=== PATIENT | male | born 1945 | race Caucasian/White ===

== ENCOUNTER 2017-03-11 20:37 | Inpatient (IN) ==
[2017-03-12] MEDS: methylPREDNISolone SOD SUC 40 MG/1 ML VIAL IV SCH ×3 (01:01→17:45)
[2017-03-12] MEDS: CEFEPIME 1,000 MG in SODIUM CHLORIDE 0.9% 100 ML IV SCH ×2 (01:04→14:45)
--- NOTE | 2017-03-12 06:20 | Pulmonology Progress Note ---
Pulmonary - PN: Subj Interval history: This 72-year-old white male has laryngeal carcinoma with a tracheostomy. Has metastatic disease to lungs bones and lymph nodes. He was coughing up blood last night. We decided to move him from [facility] to the ICU at [facility]. The hemoptysis has decreased. Plans are for bronchoscopy this morning. Left lower lobe rounded infiltrate looks a little better today than yesterday. Probably wants some pulmonary hemorrhage. Certainly could have also been bleeding from upper airways. Patient is alert and not dyspneic. Exam (Progress Note) - Constitutional Vitals: Period Temp Pulse Resp BP Sys/Rdz Pulse Ox Last 24 Hr 98.1 F-98.6 F 75-79 16-22 105-137/58-71 93-98 Exam: Alert oriented vital signs normal. Pupils react to light. Some blood in his soft palate. Neck is supple. Tracheostomy clean. Chest shows minimal expiratory rhonchi. Heart normal rate and rhythm no murmurs. Abdomen soft no masses. Extremities no clubbing cyanosis or edema. Results - Diagnostic Findings Procedure: Chest x-ray: image reviewed by me (Tracheostomy in place. Rounded infiltrate at left base seen last night looks better.) Assessment and Plan (1) COPD (chronic obstructive pulmonary disease) Status: Acute Assessment and plan: Continuing bronchodilators steroids and antibiotics empirically Current Visit: No (2) Metastatic lung cancer (metastasis from lung to other site) Status: Acute Assessment and plan: Patient has had 37 rounds of radiation to his neck. 2 rounds of chemotherapy followed by side effects that he did not tolerate. At this point he does not want further therapy. However it is likely that the hemoptysis is coming from his lung and/or laryngeal cancer. Current Visit: No (3) Hemoptysis Status: Acute Assessment and plan: This is improving. Plan for bronchoscopy this morning. Current Visit: No
[2017-03-12] MEDS ORDERED: PROMETHAZINE 25 MG/1 ML VIAL IM ONE (06:30)
[2017-03-12 06:34] LABS: Basophils % 0.1 % (0.0-0.8); Hematocrit 24.6 VOL% (42.0-52.0); Hemoglobin 7.6 GM/DL (14.0-18.0); Immature Granulocytes % 0.9 %; Immature Granulocytes Absolute 0.12 #; Lymphocytes # 0.7 10*3/uL (1.4-4.0); Lymphocytes % 5.5 % (21.2-54.2); Mean Corpuscular HGB Conc 30.9 GM/DL (32-36); Mean Corpuscular Hemoglobin 27 PG (27-34); Mean Corpuscular Volume 86.9 FL (87-102); Mean Platelet Volume 10.2 FL (9.6-12.0); Monocytes # 0.1 10*3/uL (0.11-0.8); Monocytes % 0.7 % (1.7-12.7); Neutrophils # 12.3 10*3/uL (1.4-7.4); Neutrophils % 92.8 % (38.7-73.9); Platelet Count 312 T/CUMM (130-400); Red Blood Count 2.83 MC/CUMM (3.8-5.5); Red Cell Distribution Width 16.3 % (9.3-17.3); White Blood Count 13.3 T/CUMM (4-12)
[2017-03-12] MEDS ORDERED: LIDOCAINE 1% 20 ML VIAL MISC INJ ONE (07:00)
[2017-03-12] MEDS ORDERED: MIDAZOLAM 2 MG/2 ML VIAL IV ONE (07:00)
[2017-03-12 07:02] LABS: Calcium 7.8 MG/DL (8.5-10.1); Magnesium 2.6 MG/DL (1.8-2.4); Osmolality,Calculated 278.7 MOS/KG (273-304); Potassium 5.4 MMOL/L (3.5-5.1)
--- NOTE | 2017-03-12 07:11 | Operative Note ---
Date of procedure: 03/12/17 (Fiberoptic bronchoscopy) Pre-op diagnosis: Hemoptysis in patient with known lung cancer Post-op diagnosis: same (Bleeding from anteromedial basilar segment left lower lobe lesion) Procedure: After an appropriate timeout to be sure we were dealing with Joselito Owens, the patient was given 2 mg of Versed intravenously. The inner cannula was removed from his tracheostomy. The fiberoptic bronchoscope was introduced via the tracheostomy. There was very little blood in the tracheobronchial tree. I inspected to the subsegmental level. In the anteromedial basilar segment of the left lower lobe, there was some fresh blood and appeared to be some active oozing. There was abnormal appearing mucosa and I suspect this is 1 of the sites of his metastatic lung cancer. We did not do a biopsy. Did not take photos. I used saline irrigation followed by scope tip pressure. We then used 3 cc of 1-10,000 epinephrine and saline. This was instilled topically through the bronchoscope. Once again the scope tip pressure for about 2 minutes. It appeared that the bleeding subsided. Bronchial washings were obtained. Bronchoscope was removed and the patient remained in the ICU in stable condition. Anesthesia: conscious sedation Surgeon / Physician: Go Jean Estimated blood loss: minimal Specimens: other (Bronchial washings for cultures and cytology) Condition: stable Disposition: ICU Results - Labs CBC & BMP: 03/12/17 06:28 03/12/17 06:28 Discharge Plan - Discharge Medications No Action Pantoprazole Tab [Protonix Tab] 40 mg PO DAILY Nitrofurantoin Macro/[place] [Macrobid] 100 mg PO BID HYDROcodone/CHLORPHEN ER SUSP [Tussionex] 5 ml PO BID PRN PRN Reason: Cough Aspirin [Ecotrin] 81 mg PO DAILY Hydrocodone/Acetaminophen [[place] 7.5-325 Tablet] 1 each PO Q4H PRN PRN Reason: Pain Moderate To Severe (4-10) Zaleplon [Sonata] 5 mg PO BEDTIME PRN PRN Reason: Insomnia Ondansetron Inj [Zofran Inj] 4 mg IM Q6H PRN PRN Reason: Nausea/Vomiting Atorvastatin Calcium 10 mg PO BEDTIME rOPINIRole [Requip] 0.5 mg PO BEDTIME Acetaminophen 650 mg PO Q4H PRN PRN Reason: Pain Mild (1-3) And/Or Fever Albuterol Sulfate [Albuterol Neb] 2.5 mg RESP TX QID Pregabalin [Lyrica] 50 mg PO BID predniSONE TAB [PredniSONE] 20 mg PO DAILY Amiodarone HCl 200 mg PO DAILY - Follow Up or Referral - Forms/Instructions
[2017-03-12] MEDS: HYDROcodone/CHLORPHENIRAMINE ER 5 ML UDCUP PO PRN (07:14)
[2017-03-12 07:37] LABS: Band Neutrophils 3 % (0-10); Hypochromasia 2+; Lymphocytes 3 % (20-55); Microcytosis 2+; Platelet Estimate Adequate; Polychromasia Slight; Segmented Neutrophils 92 % (50-85); Total Cells Counted 100
--- NOTE | 2017-03-12 09:15 | XRay Report ---
Portable chest. Indication: Hemoptysis. Comparison: March 11, 2017. The heart is normal in size. There is worsening infiltrate in the left lung base. There is apical pleural thickening and irregularity with parenchymal opacities, worse on the right. The hilar regions are displaced superiorly consistent with apical scarring. Prominence of the central pulmonary vasculature could indicate a component of pulmonary hypertension. Tracheostomy tube and central line are unchanged in position. Impression: Worsening appearance of the left lung base with increasing infiltrate. The remainder of the lung findings are stable. PROCEDURE INTERPRETED AT [facility] DEPARTMENT OF RADIOLOGY Final Report Signed by: Dr. Marianne Hope
[2017-03-12] MEDS ORDERED: ACETAMINOPHEN 325 MG TABLET PO PRN (10:16)
[2017-03-12] MEDS ORDERED: NITROGLYCERIN SL 0.4 MG TABLET SL PRN (10:16)
[2017-03-12] MEDS ORDERED: BISACODYL 10 MG SUPP RECTAL PRN (10:16)
[2017-03-12] MEDS: PREGABALIN 50 MG CAPSULE PO SCH ×2 (11:24→20:48)
[2017-03-12] MEDS: AMIODARONE 200 MG TABLET PO SCH (11:25)
[2017-03-12] MEDS: NITROFURANTOIN MACRO/MONO 100 MG CAPSULE PO SCH ×2 (12:05→20:49)
[2017-03-12] MEDS ORDERED: ALBUTEROL 2.5 MG/3 ML NEB RESP TX PRN (17:44)
[2017-03-12] MEDS: ALBUTEROL 2.5 MG/3 ML NEB RESP TX SCH (18:48)
[2017-03-12] MEDS: ATORVASTATIN 10 MG TABLET PO SCH (20:48)
[2017-03-12] MEDS: rOPINIRole 0.25 MG TABLET PO SCH (20:49)
[2017-03-13] MEDS: methylPREDNISolone SOD SUC 40 MG/1 ML VIAL IV SCH ×3 (00:21→16:43)
[2017-03-13] MEDS: CEFEPIME 1,000 MG in SODIUM CHLORIDE 0.9% 100 ML IV SCH ×2 (00:22→15:24)
[2017-03-13 05:44] LABS: Calcium 8.7 MG/DL (8.5-10.1); Magnesium 2.7 MG/DL (1.8-2.4); Osmolality,Calculated 282.5 MOS/KG (273-304); Phosphorous 2.8 MG/DL (2.5-4.9); Potassium 5.2 MMOL/L (3.5-5.1); Prealbumin 23.1 MG/DL (20-40)
--- NOTE | 2017-03-13 07:29 | Pulmonology Progress Note ---
Pulmonary - PN: Subj Interval history: The patient is a 72-year-old white man that has metastatic cancer in his lungs and neck. It is not totally clear whether he has laryngeal cancer spread to his lungs and bone or lung cancer. He has a tracheostomy tube. He had some bleeding over the weekend that has resolved. There apparently was some bleeding in his left lower lobe. He has also been having trouble swallowing. He says he is feeling better now. He is not having any increased shortness of breath or chest pain. He mainly has been getting tube feedings. He will get an ENT evaluation today. Exam (Progress Note) - Constitutional Vitals: Period Temp Pulse Resp BP Sys/Rdz Pulse Ox Last 24 Hr 97.4 F-98.2 F 74-94 14-76 93-136/41-73 92-98 General appearance: no acute distress, under weight - Head Head exam: Present: normal inspection, normocephalic - Eye Eye exam: Present: EOMI. Absent: scleral icterus Pupils: Present: HERRERA - ENT ENT exam: Present: normal oropharynx - Neck Neck exam: Present: lymphadenopathy (He does have some large neck nodes.), other (He has a tracheostomy tube in place.) - Respiratory Respiratory exam: Present: prolonged expiratory phase, rhonchi - Cardiovascular Cardiovascular exam: Present: regular rate and rhythm. Absent: gallop, systolic murmur - GI/Abdominal GI/Abdominal exam: Present: normal bowel sounds, soft, other (He has a PEG tube in place.). Absent: organomegaly, tenderness - Extremities Exam Extremities exam: Absent: calf tenderness, edema - Neurological Exam Neurological exam: Present: alert, oriented X3, CN II-XII intact. Absent: motor sensory deficit - Psychiatric Psychiatric exam: Present: normal affect - Skin Skin exam: Present: warm, dry Results - Labs CBC & BMP: 03/12/17 06:28 03/13/17 03:50 - Diagnostic Findings Procedure: Chest x-ray: image reviewed by me, report reviewed by me (Chest x- ray shows a left lower lobe density and a mild right upper lobe density.) Assessment and Plan (1) Debility Status: Acute Assessment and plan: The patient is quite debilitated from metastatic cancer. Current Visit: No (2) Hypertension Status: Acute Assessment and plan: Patient's blood pressure and heart rate have been stable. Current Visit: No (3) COPD (chronic obstructive pulmonary disease) Status: Acute Assessment and plan: Patient has COPD and will continue respiratory therapy. Current Visit: No (4) Metastatic lung cancer (metastasis from lung to other site) Status: Acute Assessment and plan: Patient has cancer in his lungs and neck and bones. Current Visit: No (5) Protein-calorie malnutrition, severe Status: Acute Assessment and plan: The patient continues to get tube feedings. Current Visit: No (6) Hemoptysis Status: Acute Assessment and plan: The patient has some hemoptysis that is clear now. He will be checked by ENT. Current Visit: No
[2017-03-13] MEDS: ALBUTEROL 2.5 MG/3 ML NEB RESP TX SCH ×4 (07:43→21:09)
[2017-03-13] MEDS: NITROFURANTOIN MACRO/MONO 100 MG CAPSULE PO SCH ×2 (08:29→21:34)
[2017-03-13] MEDS: PREGABALIN 50 MG CAPSULE PO SCH ×2 (08:29→21:34)
[2017-03-13] MEDS: AMIODARONE 200 MG TABLET PO SCH (08:30)
[2017-03-13] MEDS ORDERED: AMIODARONE 200 MG TABLET PO SCH (09:35)
[2017-03-13] MEDS ORDERED: HYDROcodone/CHLORPHENIRAMINE ER 5 ML UDCUP PO PRN (09:35)
[2017-03-13] MEDS ORDERED: PREGABALIN 50 MG CAPSULE PO SCH (09:35)
[2017-03-13] MEDS ORDERED: ACETAMINOPHEN 325 MG TABLET PO PRN (09:35)
[2017-03-13] MEDS ORDERED: ALBUTEROL 2.5 MG/3 ML NEB RESP TX SCH (09:35)
[2017-03-13] MEDS ORDERED: ZALEPLON 5 MG CAPSULE PO PRN (09:35)
[2017-03-13] MEDS ORDERED: ONDANSETRON 4 MG/2 ML VIAL IM PRN (09:35)
--- NOTE | 2017-03-13 15:12 | Physician Query Form ---
CLICK EDIT DOCUMENT TO SELECT QUERY ANSWER --> OK --> SIGN Lana Garcia RN Clinical Healthcare Translator W) [phone] (f) [phone] [email or web address] PROVIDERS: Make your selection(s) from the choices in EACH section by typing an "x" and enter comments in the comment section. Please use your independent medical judgment in providing your response. This request does not imply that any particular answer is desired or expected. CLINICAL INDICATORS: (Providers should not edit this section) Based on documentation of "acute COPD", pt. treated with IV Solumedrol. Based on the above, could you clarify the appropriate diagnosis, if significant , that supports the above abnormalities and additional evaluation, monitoring, and/or treatment rendered: ( ) Pt. treated for COPD exacerbation ( x) Pt. treated for chronic COPD ( ) Other, please specify: ( ) Clinically unable to determine COMMENTS: PLEASE ALSO DOCUMENT RESPONSE IN PROGRESS NOTES AND/OR DISCHARGE SUMMARY Use of terms such as suspected, likely, or probable (associated with a specific diagnosis that is being evaluated, monitored, or treated as if it exists) are acceptable and can be restated in the discharge summary if not ruled out. [facility]
[2017-03-13] MEDS ORDERED: HEPARIN LOCK FLUSH 500 UNIT/5 ML SYRINGE IV ONE (16:21)
[2017-03-13] MEDS ORDERED: ATORVASTATIN 10 MG TABLET PO SCH (21:00)
[2017-03-13] MEDS ORDERED: rOPINIRole 0.25 MG TABLET PO SCH (21:00)
[2017-03-13] MEDS: rOPINIRole 0.25 MG TABLET PO SCH (21:34)
[2017-03-13] MEDS: ATORVASTATIN 10 MG TABLET PO SCH (21:34)
[2017-03-14] MEDS: CEFEPIME 1,000 MG in SODIUM CHLORIDE 0.9% 100 ML IV SCH (00:56)
[2017-03-14] MEDS: methylPREDNISolone SOD SUC 40 MG/1 ML VIAL IV SCH ×2 (00:56→18:48)
[2017-03-14 05:25] LABS: Basophils % 0.1 % (0.0-0.8); Hematocrit 22.9 VOL% (42.0-52.0); Hemoglobin 7.2 GM/DL (14.0-18.0); Immature Granulocytes % 1.9 %; Lymphocytes # 0.8 10*3/uL (1.4-4.0); Lymphocytes % 5.1 % (21.2-54.2); Mean Corpuscular HGB Conc 31.4 GM/DL (32-36); Mean Corpuscular Hemoglobin 27 PG (27-34); Mean Corpuscular Volume 86.7 FL (87-102); Mean Platelet Volume 11.1 FL (9.6-12.0); Monocytes # 0.4 10*3/uL (0.11-0.8); Monocytes % 2.7 % (1.7-12.7); NRBC # 0.02 10*3/uL; Neutrophils # 13.9 10*3/uL (1.4-7.4); Neutrophils % 90.2 % (38.7-73.9); Platelet Count 367 T/CUMM (130-400); Red Blood Count 2.64 MC/CUMM (3.8-5.5); Red Cell Distribution Width 16.5 % (9.3-17.3); White Blood Count 15.4 T/CUMM (4-12)
[2017-03-14] MEDS: ALBUTEROL 2.5 MG/3 ML NEB RESP TX SCH ×4 (08:08→19:04)
[2017-03-14] MEDS: predniSONE 20 MG TABLET PO SCH (10:56)
[2017-03-14] MEDS: NITROFURANTOIN MACRO/MONO 100 MG CAPSULE PO SCH ×2 (10:56→11:27)
[2017-03-14] MEDS: AMIODARONE 200 MG TABLET PO SCH (10:56)
[2017-03-14] MEDS: PREGABALIN 50 MG CAPSULE PO SCH ×2 (10:57→11:26)
--- NOTE | 2017-03-14 11:15 | Pathology Report from [facility] ---
[facility] [place] : [id number] PATIENT NAME : Jeffrey Owens ORDERING DR : SHA BUNDY MD CLINICAL HX: Hemoptysis in patient with known lung cancer POST-OP DX: Same SPECIMEN INFO: Washing,Bronchial,LLL - 20 mls bloody, cloudy CLASS: III CLASS COMMENTS: Respiratory epithelium, acute inflammation, blood and atypical squamous metaplasia, favor reactive.CELL BLOCK: No atypical cells seen. CLASS LEGEND: CLASS 0 Material inadequate for diagnosis because of (see comment) CLASS I Absence of atypical or abnormal cells CLASS II Atypical Cytology but no evidence of malignancy CLASS III Cytology suggestive of but not conclusive for malignancy CLASS IV Cytology strongly suggestive of malignancy CLASS V Cytology conclusive for malignancy COLLECTED DATE: 03/13/2017 [facility] REPORT DATE: 03/14/2017 ELECTRONICALLY SIGNED BY: Luis Bernstein M.D. 03/14/2017 - 9:37:38 [facility]TDD
[2017-03-14] MEDS: HYDROcodone/CHLORPHENIRAMINE ER 5 ML UDCUP PO PRN (11:17)
[2017-03-14] MEDS: PANTOPRAZOLE 40 MG TABLET PO SCH ×2 (11:27→18:49)
--- NOTE | 2017-03-14 11:43 | Discharge Summary ---
Hospital Course - Hospital Course Hospital Course: Patient is a 72-year-old white man that has metastatic lung cancer. He has a component of COPD. He has a tracheostomy tube and does have tumor in his neck. He has significant protein calorie malnutrition and has been getting tube feedings. He was in [facility] rehab and doing a little better when he started having some hemoptysis. He was transferred [facility] and Dr. Jean to the bronchoscope. There was a small area that bleeding and this was controlled with iced saline and epinephrine. He has not had any further hemoptysis. His breathing is back to baseline. He is weak but is doing better with rehab. He had had a fracture of his right fifth metatarsal and could not walk for several weeks. Now he is trying to get ambulatory again. Patient's respiratory status remains stable and he had no further hemoptysis. His breathing is doing much better. He is tolerating his feedings. He has been working with physical therapy and ambulating a little better. Arrangements have been made for him to go home with home health. He will have oxygen in the hospital bed at home along with a nebulizer. He will continue outpatient physical therapy. He will follow-up with his doctors in [place]. Diagnosis - Discharge Diagnosis (1) Debility Status: Acute (2) Hypertension Status: Acute (3) COPD (chronic obstructive pulmonary disease) Status: Acute (4) Metastatic lung cancer (metastasis from lung to other site) Status: Acute (5) Protein-calorie malnutrition, severe Status: Acute (6) Hemoptysis Status: Acute Discharge Plan - Discharge Data Disposition: Home Health Service Condition at Discharge: Stable Discharge Diet: other (He is getting his diet as tolerated along with tube feedings.) Activity: as per physical therapy - Discharge Medications New Albuterol Neb [Proventil Neb] 2.5 mg RESP TX RT QID Albuterol Neb [Proventil Neb] 2.5 mg RESP TX RT QID PRN PRN Reason: Shortness Of Breath Amiodarone Tab [Cordarone Tab] 200 mg PO DAILY tablet Cefuroxime Tab [Ceftin] 500 mg PO BID #10 tablet Ferrous Sulfate Liquid [Feosol Liquid] 300 mg PO BID #30 mls Gabapentin Liquid [Neurontin Liquid] 300 mg PO BID #60 bottle HYDROcodone/ACETAMIN 7.5-325 [[place] 7.5-325] 1 tablet PO Q4H PRN #30 tablet PRN Reason: Pain Moderate (4-7) Lansoprazole Odt Tab [Prevacid Solutab] 30 mg PO DAILY #30 tablet Nitroglycerin Sl Tab [Nitrostat] 0.4 mg SL Q5M PRN tablet PRN Reason: Chest Pain rOPINIRole [Requip] 0.5 mg PO BEDTIME #30 tablet Atorvastatin [Lipitor] 10 mg PO BEDTIME tablet predniSONE TAB [PredniSONE] 20 mg PO DAILY #30 tablet Continue HYDROcodone/CHLORPHEN ER SUSP [Tussionex] 5 ml PO BID PRN PRN Reason: Cough Hydrocodone/Acetaminophen [[place] 7.5-325 Tablet] 1 each PO Q4H PRN PRN Reason: Pain Moderate To Severe (4-10) Zaleplon [Sonata] 5 mg PO BEDTIME PRN #30 mls PRN Reason: Insomnia Atorvastatin Calcium 10 mg PO BEDTIME rOPINIRole [Requip] 0.5 mg PO BEDTIME Acetaminophen 650 mg PO Q4H PRN PRN Reason: Pain Mild (1-3) And/Or Fever Albuterol Sulfate [Albuterol Neb] 2.5 mg RESP TX QID predniSONE TAB [PredniSONE] 20 mg PO DAILY Amiodarone HCl 200 mg PO DAILY Discontinued Pantoprazole Tab [Protonix Tab] 40 mg PO DAILY Nitrofurantoin Macro/[place] [Macrobid] 100 mg PO BID Aspirin [Ecotrin] 81 mg PO DAILY Ondansetron Inj [Zofran Inj] 4 mg IM Q6H PRN PRN Reason: Nausea/Vomiting Pregabalin [Lyrica] 50 mg PO BID - Follow Up or Referral - Forms/Instructions Exam - Constitutional Vitals: Period Temp Pulse Resp BP Sys/Rdz Pulse Ox Last 24 Hr 96.3 F-98.3 F 78-101 17-20 93-116/53-59 95-99 Exam: This is an update exam on March 17. General appearance: no acute distress, under weight, he is sitting up and looking around. He is not in any respiratory distress. - Head Head exam: Present: normal inspection, normocephalic - Eye Eye exam: Present: EOMI. Absent: scleral icterus Pupils: Present: HERRERA - ENT ENT exam: Present: normal oropharynx - Neck Neck exam: Present: lymphadenopathy (He does have some large neck nodes.), other (He has a tracheostomy tube in place. His tracheostomy tube is plugged.) - Respiratory Respiratory exam: Present: He has fairly good breath sounds bilaterally with mildly prolonged expiration. He is moving air fairly well without any definite wheezing now. - Cardiovascular Cardiovascular exam: Present: regular rate and rhythm. Absent: gallop, systolic murmur - GI/Abdominal GI/Abdominal exam: Present: normal bowel sounds, soft, other (He has a PEG tube in place.). Absent: organomegaly, tenderness - Extremities Exam Extremities exam: Absent: calf tenderness, edema, he has no signs of phlebitis. - Neurological Exam Neurological exam: Present: alert, oriented X3, CN II-XII intact. Absent: motor sensory deficit - Psychiatric Psychiatric exam: Present: normal affect - Skin Skin exam: Present: warm, dry Discharge Results Procedures and tests throughout hospitalization: Pending Orders 03/12/17 07:11 Cytology Request Routine 03/12/17 07:36 Bronchial Washings C & Gram St Routine Labs on day of discharge: Labs from last 24 hours 03/14/17 04:49 WBC 15.4 H RBC 2.64 L Hgb 7.2 L Hct 22.9 L MCV 86.7 L MCH 27 MCHC 31.4 L RDW 16.5 Plt Count 367 MPV 11.1 Neut % (Auto) 90.2 H Lymph % (Auto) 5.1 L [place] % (Auto) 2.7 Eos % (Auto) 0.0 Baso % (Auto) 0.1 Neut # (Auto) 13.9 H Lymph # (Auto) 0.8 L [place] # (Auto) 0.4 Eos # (Auto) 0.0 Baso # (Auto) 0.0 Immature Gran % 1.9 Nucleated RBC % 0.1 Immature Gran # 0.30 Nucleated RBCs # 0.02 Preliminary micro results at discharge 03/12/17 07:36 Bronchial Washings Culture - Preliminary Bronchial Washings Escherichia coli Gram Positive Cocci - Imaging and Cardiology Procedure: Chest x-ray: image reviewed by me, report reviewed by me (Chest x- ray shows some mild infiltrate in the right upper lung and a nodular area in the left lower lobe.) DS: Provider Date of admission: 03/11/17 20:45 Primary care physician: . No PCP Attending physician on admission: Masoud Kramer, Consults: 03/11/17 22:19 Consult to Dietitian [CONS] Routine Reason for Dietitian: Diet Recommendations Consult to Pastoral Services [CONS] Routine Comment: Pastoral Screen: Request Director Of Healthcare Systems Visit Pastoral Screen Source of Request: Patient 03/12/17 07:13 Consult to Physician [CONS] Routine Comment: Laryngeal carcinoma patient with hemoptysis Consulting Provider: Donte Suazo Consulting Provider Notified: Yes When should Consulting Provider be notified: Now Consult to Specialist Group: ENT When should Consulting Provider be notified: In am Person Notified: ADRIENNE Date Notified: 03/13/17 Time Notified: 10:10 03/12/17 10:39 Consult to Physical Therapy [CONS] Routine Reason for Physical Therapy: Evaluate and Treat Consult [facility] Discharging clinician: Masoud Kramer, Expected date of discharge: 03/17/17
--- NOTE | 2017-03-14 14:05 | Pulmonology Progress Note ---
Pulmonary - PN: Subj Interval history: The patient is a 72-year-old white man that has metastatic cancer in his lungs and neck. It is not totally clear whether he has laryngeal cancer spread to his lungs and bone or lung cancer. He has a tracheostomy tube. He had some bleeding over the weekend that has resolved. There apparently was some bleeding in his left lower lobe. He has also been having trouble swallowing. He says he is feeling better now. He had an ENT checked that did not see any lesions bleeding in his throat. His breathing is better and his coughing is better. He still does not think he can get around very well. Will continue with physical therapy. Exam (Progress Note) - Constitutional Vitals: Period Temp Pulse Resp BP Sys/Rdz Pulse Ox Last 24 Hr 96.3 F-98.3 F 78-101 17-20 93-116/53-73 95-99 Exam: General appearance: no acute distress, under weight, he is comfortable sitting up in bed. His trach is plugged and is breathing comfortably. - Head Head exam: Present: normal inspection, normocephalic - Eye Eye exam: Present: EOMI. Absent: scleral icterus Pupils: Present: HERRERA - ENT ENT exam: Present: normal oropharynx - Neck Neck exam: Present: lymphadenopathy (He does have some large neck nodes.), other (He has a tracheostomy tube in place.) - Respiratory Respiratory exam: Present: He has fairly good breath sounds bilaterally is moving air fairly well without any definite wheezing now. - Cardiovascular Cardiovascular exam: Present: regular rate and rhythm. Absent: gallop, systolic murmur - GI/Abdominal GI/Abdominal exam: Present: normal bowel sounds, soft, other (He has a PEG tube in place.). Absent: organomegaly, tenderness - Extremities Exam Extremities exam: Absent: calf tenderness, edema - Neurological Exam Neurological exam: Present: alert, oriented X3, CN II-XII intact. Absent: motor sensory deficit - Psychiatric Psychiatric exam: Present: normal affect - Skin Skin exam: Present: warm, dry Results - Labs CBC & BMP: 03/14/17 04:49 03/13/17 03:50 Assessment and Plan (1) Debility Status: Acute Assessment and plan: The patient is quite debilitated from metastatic cancer. Will continue with physical therapy. Current Visit: No (2) Hypertension Status: Acute Assessment and plan: Patient's blood pressure and heart rate have been stable. Current Visit: No (3) COPD (chronic obstructive pulmonary disease) Status: Acute Assessment and plan: Patient has COPD and will continue respiratory therapy. His breathing is reasonably stable at present. Current Visit: No (4) Metastatic lung cancer (metastasis from lung to other site) Status: Acute Assessment and plan: Patient has cancer in his lungs and neck and bones. He says he does not want to take further treatment. Current Visit: No (5) Protein-calorie malnutrition, severe Status: Acute Assessment and plan: The patient continues to get tube feedings. He is actually eating a little better also. Current Visit: No (6) Hemoptysis Status: Acute Assessment and plan: The patient has some hemoptysis that is clear now. He had a negative ENT checkup. He is not having any further bleeding. His hematocrit is down to 22 and will transfuse. Current Visit: No
[2017-03-14] MEDS ORDERED: SODIUM CHLORIDE 0.9% 250 ML IV PRN (14:06)
[2017-03-14] MEDS: NITROFURANTOIN MACROCRYSTALS 100 MG CAPSULE PO SCH ×2 (16:29→20:53)
[2017-03-14] MEDS: FERROUS SULFATE 300 MG/5 ML UDCUP PO SCH ×2 (16:29→20:52)
[2017-03-14] MEDS: LANSOPRAZOLE ODT 30 MG TABLET PO SCH (16:29)
[2017-03-14] MEDS: CEFUROXIME 500 MG TABLET PO SCH (20:53)
[2017-03-14] MEDS: ATORVASTATIN 10 MG TABLET PO SCH (20:53)
[2017-03-14] MEDS: rOPINIRole 0.25 MG TABLET PO SCH (20:53)
[2017-03-14] MEDS: GABAPENTIN 50 MG/ML 30 ML/BOTTLE PO SCH (20:54)
[2017-03-15 05:58] LABS: Hematocrit 30.2 VOL% (42.0-52.0); Hemoglobin 9.7 GM/DL (14.0-18.0)
[2017-03-15] MEDS: ALBUTEROL 2.5 MG/3 ML NEB RESP TX SCH ×4 (07:21→20:19)
--- NOTE | 2017-03-15 07:51 | Consultation ---
Assessment and Plan - Time spent with patient Time spent with patient: Less than 30 minutes (1) Laryngeal cancer Status: Acute Assessment and plan: Status post treatment proximally 3 months ago and [place] per patient laryngoscopy at bedside reveals no persistence of disease and now area of hemoptysis. The most likely area of the hemoptysis was taken care of by bronchoscopy and was from what is presumed to be a long metastasis from the patient's history and what he discusses with me. He is currently tolerating his tracheostomy well and does not desire to get rid of it is there is concerned that his disease may recur which is not a completely unreasonable concern. He is comfortable with his care right now I do not recommend escalating his plan of care or change his plan of care. I called and discussed this with Dr. Kramer and he is in agreement. Current Visit: Yes (2) Metastatic lung cancer (metastasis from lung to other site) Status: Acute Current Visit: No (3) Hemoptysis Status: Acute Current Visit: No History of Present Illness - Data of Consult Patient: new to practice Consult date: 03/13/17 Requesting Physician: Masoud Kramer - Consult Narrative Reason for consult: Laryngeal cancer History of present illness: Mr. Owens is a 72 year old male with a history of laryngeal cancer approximately 1 year prior has received a full round of chemo and radiation treatment from an outlying facility in [place] per the patient he has been trached and is in rehab currently he was transferred to the ICU as his tracheostomy started to bleed. ENT was consulted for history of laryngeal cancer with hemoptysis. Pulmonology has subsequently brought the patient and found a bleeding lesion in the bronchi that was subsequently cauterized and taking care of. Patient does state that he has known what is presumed to be metastasis to the lungs which had been treated per his chemo and radiation. He currently notes resolution of any hemoptysis he also notes no difficulty with his trach no difficulty breathing and no current dysphasia. CC: Masoud Kramer, - Home Medications and Allergies Home Medications: Home Medications Medication Instructions Recorded Confirmed Type Acetaminophen 650 mg PO Q4H PRN 03/07/17 03/11/17 History Albuterol Sulfate [Albuterol Neb] 2.5 mg RESP TX QID 03/07/17 03/11/17 History Amiodarone HCl 200 mg PO DAILY 03/07/17 03/11/17 History Atorvastatin Calcium 10 mg PO BEDTIME 03/07/17 03/11/17 History Pregabalin [Lyrica] 50 mg PO BID 03/07/17 03/11/17 History predniSONE TAB [PredniSONE] 20 mg PO DAILY 03/07/17 03/11/17 History rOPINIRole [Requip] 0.5 mg PO BEDTIME 03/07/17 03/11/17 History Aspirin [Ecotrin] 81 mg PO DAILY 03/11/17 03/11/17 History HYDROcodone/CHLORPHEN ER SUSP 5 ml PO BID PRN 03/11/17 03/11/17 History [Tussionex] Hydrocodone/Acetaminophen [[place] 1 each PO Q4H PRN 03/11/17 03/11/17 History 7.5-325 Tablet] Nitrofurantoin Macro/Pleasants 100 mg PO BID 03/11/17 03/11/17 History [Macrobid] Ondansetron Inj [Zofran Inj] 4 mg IM Q6H PRN 03/11/17 03/11/17 History Pantoprazole Tab [Protonix Tab] 40 mg PO DAILY 03/11/17 03/11/17 History Zaleplon [Sonata] 5 mg PO BEDTIME PRN 03/11/17 03/11/17 History Allergies/Adverse Reactions: Allergies Allergy/AdvReac Type Severity Reaction Status Date / Time apixaban [From Eliquis] Allergy Unknown Verified 03/07/17 12:50 indomethacin [From Indocin] Allergy Unknown Verified 03/07/17 12:50 12 point system: reviewed and no additional remarkable complaints except as stated Medical,Surgical,& Family Hx - Medical History Cardio: History of: Hypertension Endocrine: No history of: Diabetes Mellitus (IDDM), Diabetes Mellitus (NIDDM) Respiratory: History of: Bronchitis, Lung Cancer, Respiratory Problems (trach placed december 2016) Genitourinary: No history of: Kidney Stones, Recurring Urinary Tract Infections Gastrointestinal: No history of: Crohn's Disease, GERD, Liver Problems, Ulcerative Colitis Musculoskeletal: History of: Musculoskeletal Problems (weakness, neuropathy) Hematology: No history of: Anemia - Surgical History Cardiac Surgeries: Sugical HX of: Cardiac Surgery (3 stents placed) HEENT Surgeries: Surgical HX of: Tonsilectomy & Adenoidectomy Abdominal Surgeries: Surgical HX of: Colonoscopy Patient denies: Appendectomy, Cholecystectomy - Family History Family History: Reports;: Family Cancer (mother, sisters), Family Hypertension ( mother) Denies;: Family Diabetes, Family Stroke - Social History Smoking Status: Former smoker Type of Drug Use: None Exam - Constitutional Vitals: Period Temp Pulse Resp BP Sys/Rdz Pulse Ox Last 24 Hr 97.2 F-98.3 F 70-101 17-20 112-130/54-79 94-99 General appearance: normal weight, no acute distress - Head Head exam: Present: normal inspection, normocephalic - Eye Eye exam: Present: EOMI Pupils: Present: HERRERA - ENT ENT exam: Present: normal exam, normal external ear exam, normal oropharynx, other (Laryngoscopy at bedside reveals a post-radiated larynx and supraglottis with postradiation edema and erythema but no evidence of recurrence or persistence no obvious area of hemorrhage patient's voice and swallow is remarkably well.) - Expanded ENT Exam Ear exam: Present: TM's normal bilaterally Mouth exam: Present: normal external inspection, moist Teeth exam: Present: other (Edentulous upper and lower) Throat exam: Present: normal inspection - Neck Neck exam: Present: normal inspection, other (Midline Trach in place and patent patient discussed that he had discussed with his physicians at his primary treating [place] about continuing to keep the trach as his disease may progress secondary to its initial staging. He is tolerating the trach well) - Respiratory Respiratory exam: Present: other (No shortness of breath or difficulty breathing ) - GI/Abdominal GI/Abdominal exam: Present: soft - Extremities Exam Extremities exam: Present: normal inspection - Neurological Exam Neurological exam: Present: alert, oriented X3, CN II-XII intact - Psychiatric Psychiatric exam: Present: normal affect, normal mood - Skin Skin exam: Present: normal color, warm Results - Labs CBC & BMP: 03/15/17 04:42 03/13/17 03:50 Lab Results: I have reviewed the past 24 hour labs
[2017-03-15] MEDS: FERROUS SULFATE 300 MG/5 ML UDCUP PO SCH ×2 (08:57→20:59)
[2017-03-15] MEDS: LANSOPRAZOLE ODT 30 MG TABLET PO SCH (08:57)
[2017-03-15] MEDS: CEFUROXIME 500 MG TABLET PO SCH ×2 (08:57→21:00)
[2017-03-15] MEDS: GABAPENTIN 50 MG/ML 30 ML/BOTTLE PO SCH ×2 (08:57→21:00)
[2017-03-15] MEDS: AMIODARONE 200 MG TABLET PO SCH (08:57)
[2017-03-15] MEDS: predniSONE 20 MG TABLET PO SCH (08:57)
[2017-03-15] MEDS: NITROFURANTOIN MACROCRYSTALS 100 MG CAPSULE PO SCH ×2 (08:57→21:00)
--- NOTE | 2017-03-15 10:21 | Pulmonology Progress Note ---
Pulmonary - PN: Subj Interval history: The patient is a 72-year-old white man that has metastatic cancer in his lungs and neck. It is not totally clear whether he has laryngeal cancer spread to his lungs and bone or lung cancer. He has a tracheostomy tube. He had some bleeding over the weekend that has resolved. There apparently was some bleeding in his left lower lobe. He has also been having trouble swallowing. He says he is feeling better now. He had an ENT check that did not see any lesions bleeding in his throat. His breathing is better and his coughing is better. He was transfused a couple units of blood yesterday and did well. He feels like his breathing is doing a little better. He is walking some with physical therapy. Overall he seems to be quite stable. Exam (Progress Note) - Constitutional Vitals: Period Temp Pulse Resp BP Sys/Rdz Pulse Ox Last 24 Hr 97.2 F-98.3 F 70-100 17-20 101-130/54-79 94-99 Exam: General appearance: no acute distress, under weight, he is comfortable sitting up in bed. His trach is plugged and is breathing comfortably. - Head Head exam: Present: normal inspection, normocephalic - Eye Eye exam: Present: EOMI. Absent: scleral icterus Pupils: Present: HERRERA - ENT ENT exam: Present: normal oropharynx - Neck Neck exam: Present: lymphadenopathy (He does have some large neck nodes.), other (He has a tracheostomy tube in place.) - Respiratory Respiratory exam: Present: He has fairly good breath sounds bilaterally and his lungs sound reasonably clear with minimal rhonchi. - Cardiovascular Cardiovascular exam: Present: regular rate and rhythm. Absent: gallop, systolic murmur - GI/Abdominal GI/Abdominal exam: Present: normal bowel sounds, soft, other (He has a PEG tube in place.). Absent: organomegaly, tenderness - Extremities Exam Extremities exam: Absent: calf tenderness, edema, there is no signs of phlebitis. - Neurological Exam Neurological exam: Present: alert, oriented X3, CN II-XII intact. Absent: motor sensory deficit - Psychiatric Psychiatric exam: Present: normal affect - Skin Skin exam: Present: warm, dry Results - Labs CBC & BMP: 03/15/17 04:42 03/13/17 03:50 Assessment and Plan (1) Debility Status: Acute Assessment and plan: The patient is quite debilitated from metastatic cancer. Will continue with physical therapy. We will probably set up home health and physical therapy at home. Current Visit: No (2) Hypertension Status: Acute Assessment and plan: Patient's blood pressure and heart rate have been stable. Current Visit: No (3) COPD (chronic obstructive pulmonary disease) Status: Acute Assessment and plan: Patient has COPD and will continue respiratory therapy. His breathing is reasonably stable at present. He continues to do well with his tracheostomy tube plugged. Current Visit: No (4) Metastatic lung cancer (metastasis from lung to other site) Status: Acute Assessment and plan: Patient has cancer in his lungs and neck and bones. He says he does not want to take further treatment. Current Visit: No (5) Protein-calorie malnutrition, severe Status: Acute Assessment and plan: The patient continues to get tube feedings. He is actually eating a little better also. Current Visit: No (6) Hemoptysis Status: Acute Assessment and plan: The patient has some hemoptysis that is clear now. He had a negative ENT checkup. He is not having any further bleeding. His hematocrit is up to 30 now. He feels like he is breathing better and doing better. Will set up for him to go home soon with home health and physical therapy at home. Current Visit: No
[2017-03-15] MEDS: ATORVASTATIN 10 MG TABLET PO SCH (21:00)
[2017-03-15] MEDS: rOPINIRole 0.25 MG TABLET PO SCH (21:00)
[2017-03-16] MEDS: NITROFURANTOIN MACROCRYSTALS 100 MG CAPSULE PO SCH ×2 (08:30→20:42)
[2017-03-16] MEDS: ALBUTEROL 2.5 MG/3 ML NEB RESP TX SCH ×4 (08:31→19:53)
[2017-03-16] MEDS: CEFUROXIME 500 MG TABLET PO SCH ×2 (09:49→20:42)
[2017-03-16] MEDS: FERROUS SULFATE 300 MG/5 ML UDCUP PO SCH ×2 (09:49→20:41)
[2017-03-16] MEDS: predniSONE 20 MG TABLET PO SCH (09:49)
[2017-03-16] MEDS: LANSOPRAZOLE ODT 30 MG TABLET PO SCH (09:49)
[2017-03-16] MEDS: AMIODARONE 200 MG TABLET PO SCH (09:50)
[2017-03-16] MEDS: GABAPENTIN 50 MG/ML 30 ML/BOTTLE PO SCH ×2 (09:50→20:43)
--- NOTE | 2017-03-16 10:01 | Pulmonology Progress Note ---
Pulmonary - PN: Subj Interval history: The patient is a 72-year-old white man that has metastatic cancer in his lungs and neck. It is not totally clear whether he has laryngeal cancer spread to his lungs and bone or lung cancer. He does have metastatic disease however. He has a tracheostomy tube. He had some bleeding over the weekend that has resolved. There apparently was some bleeding in his left lower lobe. Patient does have significant COPD. He has been able to plug his tracheostomy tube but he still gets short of breath on exertion. His O2 saturation on room air has been 88%. He is much more comfortable on oxygen. His cough and congestion have been better. He did get transfused and his hematocrit is up to 30. He does want to try to get home with home health and has been trying physical therapy and ambulating a little. He is trying to get better nutrition and he is getting 5 bolus feedings a day. Is also trying to eat a little although at times he has trouble with his swallowing. Since he is getting tube feedings he does need to keep his head elevated and will get a hospital bed at home. He is using nebulizer therapy and will have home oxygen for his respiratory distress. Overall the patient is feeling a little better. He does want to try to go home with physical therapy at home. Exam (Progress Note) - Constitutional Vitals: Period Temp Pulse Resp BP Sys/Rdz Pulse Ox Last 24 Hr 97.9 F-98.7 F 65-90 16-20 101-118/54-72 93-100 Exam: General appearance: no acute distress, under weight, he is comfortable sitting up in bed. His trach is plugged and is breathing comfortably. He is alert and has been resting reasonably well. - Head Head exam: Present: normal inspection, normocephalic - Eye Eye exam: Present: EOMI. Absent: scleral icterus Pupils: Present: HERRERA - ENT ENT exam: Present: normal oropharynx - Neck Neck exam: Present: lymphadenopathy (He does have some large neck nodes.), other (He has a tracheostomy tube in place.) - Respiratory Respiratory exam: Present: He has fairly good breath sounds bilaterally and is moving air relatively well with some mild rhonchi. - Cardiovascular Cardiovascular exam: Present: regular rate and rhythm. Absent: gallop, systolic murmur - GI/Abdominal GI/Abdominal exam: Present: normal bowel sounds, soft, other (He has a PEG tube in place.). Absent: organomegaly, tenderness - Extremities Exam Extremities exam: Absent: calf tenderness, edema, there is no signs of phlebitis. - Neurological Exam Neurological exam: Present: alert, oriented X3, CN II-XII intact. Absent: motor sensory deficit - Psychiatric Psychiatric exam: Present: normal affect - Skin Skin exam: Present: warm, dry Results - Labs CBC & BMP: 03/15/17 04:42 03/13/17 03:50 Assessment and Plan (1) Debility Status: Acute Assessment and plan: The patient is quite debilitated from metastatic cancer. He is probably not going to take any further chemotherapy. He does want to go home with respiratory therapy at home and nutritional support. He will also try to continue outpatient physical therapy. He will follow-up with his doctors in [place]. Current Visit: No (2) Hypertension Status: Acute Assessment and plan: Patient's blood pressure and heart rate have been stable. Current Visit: No (3) COPD (chronic obstructive pulmonary disease) Status: Acute Assessment and plan: Patient has COPD and will continue respiratory therapy. He has adequate oxygenation on low-flow oxygen and respiratory therapy. He is fairly stable at present. Current Visit: No (4) Metastatic lung cancer (metastasis from lung to other site) Status: Acute Assessment and plan: Patient has cancer in his lungs and neck and bones. He says he does not want to take further treatment at this point Current Visit: No (5) Protein-calorie malnutrition, severe Status: Acute Assessment and plan: The patient continues to get tube feedings. He is actually eating a little better also. He seems to be tolerating his feedings fairly well. Current Visit: No (6) Hemoptysis Status: Acute Assessment and plan: The patient has some hemoptysis that is clear now. He had a negative ENT checkup. He is not having any further bleeding. His hematocrit is up to 30 now. He feels like he is breathing better and doing better. He is planning on going home tomorrow. Current Visit: No
[2017-03-16] MEDS: ATORVASTATIN 10 MG TABLET PO SCH (20:41)
[2017-03-16] MEDS: rOPINIRole 0.25 MG TABLET PO SCH (20:42)
[2017-03-17] MEDS: ALBUTEROL 2.5 MG/3 ML NEB RESP TX SCH ×2 (07:30→11:36)
[2017-03-17] MEDS: NITROFURANTOIN MACROCRYSTALS 100 MG CAPSULE PO SCH (09:55)
[2017-03-17] MEDS: CEFUROXIME 500 MG TABLET PO SCH (09:55)
[2017-03-17] MEDS: predniSONE 20 MG TABLET PO SCH (09:55)
[2017-03-17] MEDS: AMIODARONE 200 MG TABLET PO SCH (09:57)
[2017-03-17] MEDS: LANSOPRAZOLE ODT 30 MG TABLET PO SCH (09:57)
[2017-03-17] MEDS: GABAPENTIN 50 MG/ML 30 ML/BOTTLE PO SCH (09:58)
[2017-03-17] MEDS: FERROUS SULFATE 300 MG/5 ML UDCUP PO SCH (09:58)
[2017-03-17 13:54] VITALS: BP 98/52
== END 2017-03-17 11:30 | disposition home health service (06) | DRG 163 ==
LOC: N.ICU 21:52 → N.4E 03-13 09:26
PROVIDERS: ADMIT Internal Medicine Pulmonary Disease; ATTEND Internal Medicine Pulmonary Disease